=== PATIENT | female | born 1995 | race African-American/Black ===

== ENCOUNTER 2017-05-14 09:43 | Emergency (ER) | payer OTHER ==
[2017-05-14 09:55] VITALS: TEMP 98.3; BMI 29.5
--- NOTE | 2017-05-14 10:27 | PDOC ---
History of Present Illness - General Stated Complaint: SOB, PAIN (21 WKS ) Time Seen by Provider: 05/14/17 10:14 History Source: Patient Exam Limitations: No Limitations - History of Present Illness Initial Comments: CHIEF COMPLAINT: 21 y/o afebrile female, , approximately 18 week female with due date of 10/13/17 c/o SOB and chest pain this morning. HISTORY OF PRESENT ILLNESS: The patient states she was at work speaking to a co -worker when all of a sudden she felt a pain (point to mid sternum) in her chest and felt short of breath. She had to sit down and take deep breaths. She states she didn't feel better until now in the ER room. 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 She denies f/c, JASSO, dizziness, changes in vision/hearing, cough, runny nose, n/v/d, abd pain, back pain, hematuria, dysuria, abnormal vaginal bleeding/discharge. Vital signs on arrival are notable for pulse of 103 with RR of 26. REVIEW OF SYSTEMS: GENERAL/CONSTITUTIONAL: No fever/chills. No weakness. No weight change. HEAD, EYES, EARS, NOSE AND THROAT: No change in vision. No ear pain or discharge. No sore throat. CARDIOVASCULAR: +chest pain and SOB. RESPIRATORY: No cough, wheezing, or hemoptysis. GASTROINTESTINAL: No abd pain, nausea, vomiting, diarrhea. VAGINAL: No discharge or bleeding. GENITOURINARY: No dysuria, frequency, or change in urination. MUSCULOSKELETAL: No joint or muscle swelling or pain. No neck or back pain. SKIN: No rash or easy bruising. NEUROLOGIC: No headache, vertigo, loss of consciousness, or loss of sensation. PHYSICAL EXAM: GENERAL: The patient is awake, alert, and fully oriented, in no acute distress. She is well appearing and ambulatory. HEAD: Normal with no signs of trauma. ENT: Pupils equal, round and reactive to light, extraocular movements intact, sclera anicteric, conjunctiva clear. Neck supple. LUNGS: Clear to auscultation bilaterally. Normal excursion. No respiratory distress or use of accessory muscles. CV: RRR, S1/S2, no MRG. Cap refill < 2 sec. CHEST WALL: Reproducible chest pain with palpation of muscles just lateral to sternum b/l. ABDOMEN: Soft, non-distended, non-tender even to deep palpation, no hepatomegaly or splenomegaly, no masses. EXTREMITIES: Normal range of motion, no edema. NEUROLOGICAL: Normal speech, normal gait. CN II-XII grossly intact. PSYCH: Normal mood, normal affect. SKIN: Warm, dry, normal turgor, no rashes or lesions noted. Past History - Past Medical History Allergies/Adverse Reactions: Allergies Allergy/AdvReac Type Severity Reaction Status Date / Time No Known Allergies Allergy Verified 05/14/17 09:50 Home Medications: Ambulatory Orders Nitrofurantoin Monohyd/M-Cryst [Macrobid -] 100 mg PO BID #14 capsule 05/14/17 Prenat 115/Iron Fum/Folic/Dss [ 19 Tablet] 1 each PO DAILY 05/14/17 Anemia: Yes COPD: No - Immunization History Immunization Up to Date: Yes - Suicide/Smoking/Psychosocial Hx Smoking History: Never smoked Have you smoked in the past 12 months: No Information on smoking cessation initiated: No Hx Alcohol Use: No Drug/Substance Use Hx: No Substance Use Type: None *Physical Exam - Vital Signs Last Vital Signs Temp Pulse Resp BP Pulse Ox 98.3 F 103 H 26 H 124/74 100 05/14/17 09:50 05/14/17 09:50 05/14/17 09:50 05/14/17 09:50 05/14/17 09:50 Medical Decision Making - Medical Decision Making A/P: 21 y/o female with chest pain and SOB today. She is 18 weeks . Plan is as follows: 1. Saline neb 2. UA 3. PO tylenol 4. ultrasound Ultrasound IMPRESSION: Single, live intrauterine gestation of 18 weeks 3 days. Vital improved. Patient states she feels better with complete resolution of symptoms. Will send rx for macrobid for UTI. Pt instructed to take entire course. Pt instructed to f/u with her county auditor FAITH and return to the ER with any worsening or concerning symptoms. The patient verbalizes understanding of all instructions, has no further questions and is awaiting discharge. *DC/Admit/Observation/Transfer Diagnosis at time of Disposition: Chest pain, musculoskeletal, Shortness of breath UTI (urinary tract infection) Qualifiers: Urinary tract infection type: acute cystitis Hematuria presence: without hematuria Qualified Code(s): N30.00 - Acute cystitis without hematuria - Discharge Dispostion Disposition: HOME Condition at time of disposition: Improved - Referrals - Patient Instructions Printed Discharge Instructions: DI for Urinary Tract Infection (UTI), DI for Musculoskeletal Pain Additional Instructions: Discharge Instructions: -You have a urinary tract infection; a prescription for antibiotics has been sent to your pharmacy -Please take Tylenol if you experience any more musculoskeletal chest pain -Call your SECURITY OFFICER SUPERVISOR to schedule follow up appointment FAITH -Return to the ER with any worsening or concerning symptoms. - Post Discharge Activity Forms/Work/School Notes: Back to Work
[2017-05-14] MEDS ORDERED: SODIUM CHLORIDE FOR INHALATION 3 ML VIAL.NEB IH ONE (10:28)
[2017-05-14] MEDS ORDERED: ACETAMINOPHEN 325 MG TABLET (FP) PO ONE (10:28)
[2017-05-14] MEDS ORDERED: ACETAMINOPHEN 325 MG TABLET (FP) ONE (10:47)
[2017-05-14 11:14] LABS: URINE APPEARANCE CLEAR; URINE BILIRUBIN NEGATIVE (NEGATIVE); URINE BLOOD NEGATIVE (NEGATIVE); URINE COLOR YELLOW; URINE GLUCOSE (UA) NEGATIVE (NEGATIVE); URINE KETONE NEGATIVE (NEGATIVE); URINE LEUK ESTERASE TRACE (NEGATIVE); URINE NITRITE NEGATIVE (NEGATIVE); URINE PROTEIN NEGATIVE (NEGATIVE); URINE UROBILINOGEN NEGATIVE mg/dL (0.2-1.0)
[2017-05-14 12:00] LABS: EPI CELLS RARE /HPF (FEW); URINE HYALINE CAST 1 /lpf; URINE MUCUS RARE
[2017-05-14 12:46] VITALS: BP 105/59; PULSE 70
== END 2017-05-14 13:06 | disposition home or self-care (01) ==
LOC: JER 09:43
PROC: 3E0337Z Introduction of Electrolytic and Water Balance Substance into Peripheral Vein, Percutaneous Approach (ICD-10-PCS; principal; 2017-05-14)
DX: O26.892 Other specified pregnancy related conditions, second trimester (principal); Z3A.18 18 weeks gestation of pregnancy; N30.00 Acute cystitis without hematuria; R07.89 Other chest pain; M79.1 Myalgia; R06.02 Shortness of breath
CPT/HCPCS: 76815-TC; 81003; 81015; 99282-25